=== PATIENT | male | born 1945 | race Two or more races ===

== ENCOUNTER 2016-10-26 06:53 | Emergency (ER) | payer BC, OTHER ==
[~2016-10-26] VITALS: Ht 182.9 cm; Wt 93.0 kg
[2016-10-26] MEDS ORDERED: NKM (07:06)
[2016-10-26] MEDS ORDERED: TdaP Vaccine 0.5ml Syr IM ONE (07:15)
--- NOTE | 2016-10-26 07:39 | Emergency Room Report ---
History of Present Illness General Chief Complaint: Multiple Trauma/Fall Source: Patient Present Illness HPI Patient is a 70-year-old male brought in by ambulance after a fall down a few stairs. The patient denied loss of consciousness. Per witness the patient appeared to have been unresponsive for several minutes. He reports having pain to his mid back as well as to his left knee. He denies any anticoagulant use. Allergies: Coded Allergies: No Known Allergies (Unverified , 10/26/16) Patient History Past Medical History: see triage record Reviewed Nursing Documentation: PMH: Agreed, PSxH: Agreed Nursing Documentation-PMH Past Medical History: No Stated History Review of Systems All Other Systems: negative except mentioned in HPI Physical Exam Vital Signs Date Time Temp Pulse Resp B/P Pulse Ox O2 Delivery O2 Flow Rate FiO2 10/26/16 06:57 97.9 86 16 148/72 100 Room Air Sp02 EP Interpretation: reviewed, normal General Appearance: normal inspection, well appearing, no apparent distress, alert, GCS 15 Head: atraumatic Eyes: bilateral eye PERRL, bilateral eye other - left eyelid swelling ENT: normal ENT inspection, hearing grossly normal, normal voice Neck: normal inspection, full range of motion, supple, no bony tend Respiratory: normal inspection, lungs clear, normal breath sounds, no respiratory distress, no retraction, no wheezing Cardiovascular #1: regular rate, rhythm, no edema Gastrointestinal: normal inspection, normal bowel sounds, non tender, soft, no guarding, no hernia Genitourinary: no CVA tenderness Musculoskeletal: normal inspection, back normal, normal range of motion Neurologic: normal inspection, alert, responsive, speech normal Psychiatric: normal inspection, judgement/insight normal, mood/affect normal Skin: normal color, no rash, other - soft tissue swelling to left eyelid, abrasions Medical Decision Making Diagnostic Impression: Primary Impression: Fall Additional Impressions: Contusion Periorbital hematoma of left eye ER Course Patient presented after a fall down stairs.Patient was noted be carrying luggage while at work. Differential diagnosis included was not limited to head injury, facial fracture, extremity fracture among others. Patient was noted to have increased swelling over his left eye. The patient noted have multiple abrasions to his extremities. X-ray imaging of the thoracic spine was ordered patient having persistent pain. X-ray imaging of the thoracic spine read by radiology showed scoliotic changes without evident fracture. A chest x-ray one view read by radiology showed normal cardiac size without evident pneumothorax or fracture. CT the head read by radiology showed a left periorbital hematoma without evident fracture or hemorrhage. The patient was placed on light duty. He was given a tetanus vaccine. The patient is advised to follow up with primary care doctor in 1-2 days. Patient is advised to return if any worsening condition or if any changes in status that are concerning. Last Vital Signs Date Time Temp Pulse Resp B/P Pulse Ox O2 Delivery O2 Flow Rate FiO2 10/26/16 06:57 97.9 86 16 148/72 100 Room Air Status: improved Disposition: HOME, SELF-CARE Condition: Stable Scripts Bacitracin Zinc* (BACITRACIN ZINC*) 1 Each Packet 1 APPLIC TOPIC THREE TIMES A DAY, #30 PACKET Prov: Danny Sharma 10/26/16 Ibuprofen* (MOTRIN*) 400 Mg Tablet 400 MG ORAL Q8H, #30 TAB 0 Refills Prov: Danny Sharma 10/26/16 Danny Sharma Oct 26, 2016 07:39
--- NOTE | 2016-10-26 08:26 | Diagnostic Imaging Report ---
Indications: Fall, head trauma, pain Technique: Continuous helical CT imaging of the brain was performed with nonionic exposure control on a Siemens sensation [address] scanner. Axial and coronal images were reconstructed at 5 mm slice thickness and interval. CTDI volume(s): 70 mGy Total DLP: 1340 mGy-cm Findings: Comparison: None Mild low attenuation is present in the bilateral periventricular white matter. Ventricles, cisterns, and sulci are diffusely prominent. No evidence of mass or hemorrhage, mass effect, midline shift, hydrocephalus, or increased intracranial pressure. Bone window images are unremarkable. Visualized paranasal sinuses and mastoid air cells are clear. Left periorbital soft tissues are swollen and increased attenuation. No associated gas or foreign body demonstrated. IMPRESSION: Left periorbital hematoma No other evidence of acute injury or other acute intracranial pathology. Bilateral cerebral periventricular white matter low attenuation, nonspecific, likely chronic microvascular ischemic in nature. Mild atrophy The CT scanner at [facility] is accredited by the [employer] and the scans are performed using protocols designed to limit radiation exposure to as low as reasonably achievable to attain images of sufficient resolution adequate for diagnostic evaluation.
[2016-10-26 08:40] VITALS: BP 148/72
[2016-10-26] MEDS ORDERED: Acetaminophen 500mg (ES) tab ORAL ONE (09:15)
[2016-10-26] MEDS ORDERED: BACITRACIN ZIN1 EACH TOPIC (09:45)
[2016-10-26] MEDS ORDERED: IBUPROFEN400 MG ORAL (09:45)
--- NOTE | 2016-10-26 10:00 | Diagnostic Imaging Report ---
Indication: Chest pain Technique: Single portable AP view of the chest. Findings: Comparison: None. Suboptimal inspiration limits evaluation. The bones and extra pulmonary soft tissues, cardiomediastinal silhouette, pulmonary vasculature, visualized portions of pulmonary parenchyma and pleural surfaces are unremarkable. IMPRESSION: Negative portable AP chest, limited as described. Upright PA and lateral chest radiographs with better inspiratory effort and optimal technique recommended for more complete evaluation..
[2016-10-26] MEDS ORDERED: Bacitracin Oint UD TOPIC ONE (10:01)
--- NOTE | 2016-10-26 10:03 | Diagnostic Imaging Report ---
Indications: Fall, back trauma and pain. Technique: 3 views of the thoracic spine Findings: Comparison: None Mild S-shaped scoliosis. Vertebral alignment is intact. No fracture, lytic destruction, paraspinous soft tissue swelling, or other acute changes are demonstrated. Also level disc space narrowing with marginal osteophyte formation.. IMPRESSION: No evidence of acute thoracic vertebral injury. Degenerative spondylosis Scoliosis
[2016-10-26 10:05] VITALS: BP 148/72
== END 2016-10-26 10:22 | disposition home or self-care (01) ==
LOC: EDBD 06:53 → EMR 07:10
DX: S00.12XA Contusion of left eyelid and periocular area, initial encounter (principal); W10.9XXA Fall (on) (from) unspecified stairs and steps, initial encounter; Y92.9 Unspecified place or not applicable; Z23 Encounter for immunization; M47.814 Spondylosis without myelopathy or radiculopathy, thoracic region; M41.84 Other forms of scoliosis, thoracic region; R07.9 Chest pain, unspecified; M25.562 Pain in left knee
CPT/HCPCS: 70450; 71010; 72070; 90471; 90715; 99284